=== PATIENT | female | born 1990 | race Caucasian/White ===

== ENCOUNTER 2021-11-05 23:02 | Inpatient (IN) | payer OTHER ==
[2021-11-05] MEDS ORDERED: Lidocaine 1% (PF) 30 ML VIAL ONE (23:17)
[2021-11-05] MEDS ORDERED: NS w/ Oxytocin 30 units 500 ML ONE (23:17)
[2021-11-05] MEDS ORDERED: Oxytocin 10 UNITS/ML VIAL ONE (23:17)
[2021-11-05] MEDS ORDERED: NS w/ Oxytocin 30 units 500 ML IV SCH ×2 (23:45)
[2021-11-05] MEDS ORDERED: Lactated Ringer's 1,000 ML IV SCH (23:45)
[2021-11-05] MEDS ORDERED: Ondansetron PF 4 MG/2 ML Vial IVP PRN (23:51)
[2021-11-05] MEDS ORDERED: Promethazine HCl 25 MG/ML VIAL IM PRN (23:51)
[2021-11-05] MEDS ORDERED: hydrALAZINE 20 MG/ML VIAL SLOW IVP PRN (23:51)
[2021-11-05] MEDS ORDERED: Lidocaine 1% (PF) 30 ML VIAL SC PRN (23:51)
[2021-11-06 00:01] LABS: Hemoglobin 13.3 g/dL (12.0-15.5); Mean Corpuscular Hemoglobin 32.4 pg (27.0-33.0); Mean Corpuscular Volume 92.5 fl (81.6-98.3); Mean Platelet Volume 11.2 fl (7.4-10.4); Platelet Count 221 10x3/uL (150-450); RBC Distribution Width 13.4 % (11.5-14.5); Red Blood Cell (RBC) Count 4.11 10x6/uL (3.90-5.03); White Blood Cell (WBC) Count 23.3 10x3/uL (3.5-10.5)
[2021-11-06 00:33] LABS: Syphilis Antibody Nonreactive (Nonreactive); Syphilis Antibody Index 0.03 S/CO (<1.00 Non-Reactive)
[2021-11-06 00:34] LABS: Hep B Surf Ag Non-Reactive S/CO (NonReactive)
[2021-11-06 00:35] LABS: HBSAg Index 0.16 S/CO (0-0.99)
[2021-11-06 01:26] VITALS: BMI 25.7
[2021-11-06] MEDS ORDERED: Bicitra 30 ML UDCUP PO PRN (02:22)
[2021-11-06] MEDS ORDERED: Famotidine/PF 20 mg/2ml Vial SLOW IVP PRN (02:22)
[2021-11-06] MEDS ORDERED: ceFAZolin 2 GM/Dextrose 50 ML IVPB ONE (02:26)
[2021-11-06] MEDS ORDERED: Azithromycin 500 MG VIAL ONE (02:26)
[2021-11-06] MEDS ORDERED: ceFAZolin 2 GM/Dextrose 50 ML 2 GM in Premix Bag 1 BAG IVPB SCH (02:30)
[2021-11-06] MEDS ORDERED: Azithromycin 500 MG in Sodium Chloride 0.9% 250 ML 250 ML IVPB SCH (02:30)
[2021-11-06] MEDS ORDERED: Morphine PF 10 MG/10 ML VIAL ONE (02:31)
[2021-11-06] MEDS ORDERED: Dexamethasone 4 mg/ml Vial ONE (02:31)
[2021-11-06] MEDS ORDERED: Ondansetron PF 4 MG/2 ML Vial ONE (02:31)
[2021-11-06] MEDS ORDERED: PHENYLEPHRINE-NS 100 MCG/ML 10 ML SYRINGE ONE ×2 (02:31→03:12)
[2021-11-06] MEDS ORDERED: Oxytocin 10 UNITS/ML VIAL ONE (02:31)
[2021-11-06] MEDS ORDERED: diphenhydrAMINE 50 MG/ML VIAL IVP PRN (02:54)
[2021-11-06] MEDS ORDERED: Ondansetron PF 4 MG/2 ML Vial IVP PRN ×2 (02:54→05:58)
[2021-11-06] MEDS ORDERED: Naloxone HCl 0.4 mg/ml Vial IVP PRN ×2 (02:54)
[2021-11-06] MEDS ORDERED: Moisturizing Cream (Eucerin) 113 GM JAR TOP PRN (02:54)
[2021-11-06] MEDS ORDERED: Promethazine HCl 25 MG/ML VIAL IM PRN (02:54)
[2021-11-06] MEDS ORDERED: Promethazine HCl 25 MG SUPP PR PRN (02:54)
[2021-11-06] MEDS ORDERED: Naloxone HCl 0.4 mg/ml Vial IV PRN (02:54)
[2021-11-06] MEDS ORDERED: Fentanyl 100 MCG/2 ML VIAL SLOW IVP PRN (02:55)
[2021-11-06] MEDS ORDERED: Ondansetron HCl/PF 4 MG/2 ML Vial IVP PRN (02:55)
[2021-11-06] MEDS ORDERED: Misoprostol 200 MCG TAB ONE (02:55)
[2021-11-06] MEDS ORDERED: Meperidine HCl/PF 25 MG/ML VIAL SLOW IVP PRN (02:55)
[2021-11-06] MEDS ORDERED: Carboprost 250 MCG/ML AMP ONE (02:56)
[2021-11-06] MEDS ORDERED: Tranexamic Acid 1,000 MG/10 ML VIAL ONE (02:56)
[2021-11-06] MEDS ORDERED: Methylergonovine 0.2 MG/ML VIAL ONE (02:56)
[2021-11-06] MEDS ORDERED: Ketorolac Tromethamine 30 MG/ML VIAL IVP SCH (03:00)
[2021-11-06] MEDS ORDERED: Communication Order-Pharmacy FS SCH (03:00)
[2021-11-06 03:30] LABS: pH (Cord, venous) 7.334 (7.250-7.350)
[2021-11-06] MEDS ORDERED: Lanolin Ointment 7 GM TUBE TOP PRN (05:58)
[2021-11-06] MEDS ORDERED: hydrALAZINE 20 MG/ML VIAL SLOW IVP PRN (05:58)
[2021-11-06] MEDS ORDERED: diphenhydrAMINE 25 MG CAP PO PRN (05:58)
[2021-11-06] MEDS ORDERED: Boostrix 0.5 ML (Tdap) VIAL IM ONE (05:58)
[2021-11-06] MEDS ORDERED: Ibuprofen 800 MG TAB PO SCH (06:00)
[2021-11-06] MEDS: Lactated Ringer's 1,000 ML IV SCH ×2 (08:08→14:24)
[2021-11-06 08:47] LABS: HIV (1/2) Antibody/Antigen Non-Reactive (NonReactive); HIV 1/2 INDEX 0.06 S/CO (<1.00)
[2021-11-06] MEDS: Prenatal Vitamin 1 TAB PO SCH (10:13)
[2021-11-06] MEDS ORDERED: oxyCODONE 5 MG TAB PO PRN ×2 (11:12→11:16)
[2021-11-06] MEDS ORDERED: Acetaminophen 325 MG TAB PO PRN ×2 (11:14→11:17)
[2021-11-06 12:24] LABS: SARS-CoV-2 NAA Rapid Test Not Detected (NotDetected)
[2021-11-06] MEDS: Ketorolac Tromethamine 30 MG/ML VIAL IVP PRN ×2 (14:23→21:43)
[2021-11-06] MEDS ORDERED: HYDROcodone/Acetaminophen 5/325 mg Tablet PO PRN ×2 (15:00)
[2021-11-06] MEDS: oxyCODONE 5 MG TAB PO PRN ×2 (15:59→21:41)
[2021-11-07] MEDS: Lactated Ringer's 1,000 ML IV SCH ×5 (00:22→20:58)
[2021-11-07] MEDS: oxyCODONE 5 MG TAB PO PRN ×5 (01:48→20:00)
[2021-11-07 05:34] LABS: Hemoglobin 11.1 g/dL (12.0-15.5); Mean Corpuscular HGB CONC 33.5 g/dL (32.0-36.0); Mean Corpuscular Hemoglobin 31.5 pg (27.0-33.0); Mean Platelet Volume 11.1 fl (7.4-10.4); Platelet Count 169 10x3/uL (150-450); RBC Distribution Width 14.2 % (11.5-14.5); Red Blood Cell (RBC) Count 3.52 10x6/uL (3.90-5.03); White Blood Cell (WBC) Count 13.6 10x3/uL (3.5-10.5)
[2021-11-07] MEDS: Ibuprofen 800 MG TAB PO SCH ×3 (06:48→22:10)
[2021-11-07] MEDS: Prenatal Vitamin 1 TAB PO SCH (09:06)
[2021-11-07] MEDS: Docusate 100 MG CAP PO SCH (09:06)
[2021-11-07] MEDS: Simethicone Chewable 80 MG TAB PO PRN ×2 (09:06→16:06)
[2021-11-07] MEDS ORDERED: Ibuprofen 800 MG TAB PO SCH (14:00)
[2021-11-08] MEDS: oxyCODONE 5 MG TAB PO PRN ×5 (00:12→20:50)
[2021-11-08] MEDS: Ibuprofen 800 MG TAB PO SCH ×3 (05:08→20:49)
[2021-11-08] MEDS: Lactated Ringer's 1,000 ML IV SCH ×3 (08:28→19:59)
[2021-11-08] MEDS: Docusate 100 MG CAP PO SCH (09:30)
[2021-11-08] MEDS: Simethicone Chewable 80 MG TAB PO PRN (09:30)
[2021-11-08] MEDS: Prenatal Vitamin 1 TAB PO SCH (09:30)
[2021-11-08 21:13] VITALS: BP 123/65; TEMP 98.6
[2021-11-09] MEDS: oxyCODONE 5 MG TAB PO PRN ×3 (03:01→15:06)
[2021-11-09] MEDS: Ibuprofen 800 MG TAB PO SCH ×2 (05:59→14:20)
[2021-11-09] MEDS: Prenatal Vitamin 1 TAB PO SCH (09:06)
[2021-11-09] MEDS: Docusate 100 MG CAP PO SCH (09:06)
[2021-11-09] MEDS: Simethicone Chewable 80 MG TAB PO PRN (09:10)
[2021-11-09] MEDS: Lactated Ringer's 1,000 ML IV SCH (15:58)
== END 2021-11-09 18:35 | disposition home or self-care (01) | DRG 788 ==
LOC: CSHLD/OP 23:02 → CSHLD 23:20 → CSHPP 11-06 06:20
PROVIDERS: ADMIT Obstetrics & Gynecology; ATTEND Obstetrics & Gynecology
PROC: 10D00Z1 Extraction of Products of Conception, Low, Open Approach (ICD-10-PCS; principal; 2021-11-06)
DX: O34.211 Maternal care for low transverse scar from previous cesarean delivery (principal); O76 Abnormality in fetal heart rate and rhythm complicating labor and delivery; O99.892 Other specified diseases and conditions complicating childbirth; N73.6 Female pelvic peritoneal adhesions (postinfective); Z20.822 Contact with and (suspected) exposure to COVID-19; O32.8XX0 Maternal care for other malpresentation of fetus, not applicable or unspecified; Z3A.40 40 weeks gestation of pregnancy; Z37.0 Single live birth; Z87.891 Personal history of nicotine dependence; Z91.040 Latex allergy status; Z79.899 Other long term (current) drug therapy; Z98.890 Other specified postprocedural states
CPT/HCPCS: 36415; 51702; 82805; 85027; 86762; 86780; 86850; 86900; 86901; 87340; 87389; 99285; J1100; J1885; J2001; J2274; J2405; J2590; J7120; U0002

== ENCOUNTER 2021-12-14 14:55 | Emergency (ER) | payer OTHER ==
[2021-12-14 17:28] LABS: #Eosinphils 0.1 10x3/uL (0.0-0.5); #Monocytes 0.4 10x3/uL (0.0-1.1); %Basophils 0.4 % (0.0-2.0); %Eosinophils 2.1 % (0.0-6.0); %Lymphocytes 33.3 % (18.0-47.0); %Monocytes 5.9 % (0.0-10.0); Hemoglobin 13.9 g/dL (12.0-15.5); Mean Corpuscular HGB CONC 34.9 g/dL (32.0-36.0); Mean Corpuscular Hemoglobin 31.7 pg (27.0-33.0); Mean Corpuscular Volume 90.7 fl (81.6-98.3); Mean Platelet Volume 10.3 fl (7.4-10.4); Platelet Count 198 10x3/uL (150-450); RBC Distribution Width 12.5 % (11.5-14.5); Red Blood Cell (RBC) Count 4.39 10x6/uL (3.90-5.03); White Blood Cell (WBC) Count 6.8 10x3/uL (3.5-10.5)
[2021-12-14 17:40] LABS: ALT (SGPT) 16 U/L (8-55); AST (SGOT) 16 U/L (5-34); Albumin 4.4 g/dL (3.5-5.0); Alkaline Phosphatase 85 U/L (40-110); Anion Gap 13 mmol/L (10-20); BUN (Urea Nitrogen) 14 mg/dL (7.0-18.7); Bilirubin, Total 1.2 mg/dL (0.2-1.2); Calc. Creatinine Clearance 0 mL/min (70-130); Calcium 9.8 mg/dL (7.8-10.44); Carbon Dioxide 27 mmol/L (22-29); Chloride 104 mmol/L (98-107); Estimated GFR 103; Globulin 2.8 g/dL (2.4-3.5); Glucose 89 mg/dL (70-105); Potassium 3.8 mmol/L (3.5-5.1); Protein, Total 7.2 g/dL (6.0-8.3); Sodium 140 mmol/L (136-145)
[2021-12-14 18:20] LABS: Bilirubin Neg (Negative); Blood, Urine 150 (Negative); Clarity Slightly Cloudy (Clear); Glucose, Urine (Dipstick) Normal (Negative); Ketone, Urine Negative (Negative); Leukocyte 100 (Negative); Nitrite Negative (Negative); Protein, Urine (Dipstick) Negative (Neg-Trace); Specific Gravity, Urine 1.005 (1.002-1.036); Urobilinogen Normal mg/dL (Less than 2)
[2021-12-14] MEDS ORDERED: Ketorolac Tromethamine 30 MG/ML VIAL ONE (18:25)
[2021-12-14 18:36] LABS: Bacteria/HPF 3+ HPF (None Seen); Mucous/LPF 1+ LPF (<2+)
== END 2021-12-14 18:37 | disposition home or self-care (01) ==
LOC: CSHERS 14:55
DX: O72.1 Other immediate postpartum hemorrhage (principal); Z87.891 Personal history of nicotine dependence
CPT/HCPCS: 76856; 80053; 81003; 81015; 84702; 85025; 86850; 86900; 86901; J1885

== ENCOUNTER 2021-12-19 21:34 | Emergency (ER) | payer OTHER ==
[2021-12-19] MEDS ORDERED: Ondansetron PF 4 MG/2 ML Vial ONE (23:24)
[2021-12-19 23:26] LABS: #Eosinphils 0.1 10x3/uL (0.0-0.5); #Monocytes 0.4 10x3/uL (0.0-1.1); #Neutrophils 2.4 10x3/uL (1.5-8.4); %Basophils 0.7 % (0.0-2.0); %Eosinophils 2.5 % (0.0-6.0); %Monocytes 7.3 % (0.0-10.0); %Neutrophils 43.3 % (40.0-75.0); Hemoglobin 12.8 g/dL (12.0-15.5); Mean Corpuscular HGB CONC 34.5 g/dL (32.0-36.0); Mean Corpuscular Hemoglobin 31.1 pg (27.0-33.0); Mean Corpuscular Volume 90.3 fl (81.6-98.3); Mean Platelet Volume 10.5 fl (7.4-10.4); Platelet Count 173 10x3/uL (150-450); RBC Distribution Width 12.4 % (11.5-14.5); Red Blood Cell (RBC) Count 4.11 10x6/uL (3.90-5.03); White Blood Cell (WBC) Count 5.6 10x3/uL (3.5-10.5)
[2021-12-19] MEDS ORDERED: Morphine 4 MG/ML VIAL ONE (23:33)
[2021-12-19 23:36] LABS: BHCG - Serum Negative (NEGATIVE); Pregs Control Background? CLEAR/WHITE (CLR/WHITE); Pregs Control Bar Appear? YES (CONTROL BAR)
[2021-12-19 23:44] LABS: ALT (SGPT) 17 U/L (8-55); AST (SGOT) 15 U/L (5-34); Alkaline Phosphatase 71 U/L (40-110); Anion Gap 9 mmol/L (10-20); BUN (Urea Nitrogen) 17 mg/dL (7.0-18.7); Bilirubin, Total 1.3 mg/dL (0.2-1.2); Calc. Creatinine Clearance 0 mL/min (70-130); Calcium 9.5 mg/dL (7.8-10.44); Carbon Dioxide 28 mmol/L (22-29); Chloride 106 mmol/L (98-107); Estimated GFR 113; Globulin 2.6 g/dL (2.4-3.5); Glucose 113 mg/dL (70-105); Potassium 3.7 mmol/L (3.5-5.1); Protein, Total 6.6 g/dL (6.0-8.3); Sodium 139 mmol/L (136-145)
[2021-12-20 00:51] LABS: Bilirubin Neg (Negative); Blood, Urine 150 (Negative); Clarity Slightly Cloudy (Clear); Glucose, Urine (Dipstick) Normal (Negative); Ketone, Urine Negative (Negative); Leukocyte 25 (Negative); Nitrite Negative (Negative); Protein, Urine (Dipstick) Negative (Neg-Trace); Urobilinogen Normal mg/dL (Less than 2)
[2021-12-20 01:13] LABS: Bacteria/HPF 1+ HPF (None Seen); Squamous Epithelial 0-3 HPF (0-3); WBC/HPF 0-3 HPF (0-3)
[2021-12-20] MEDS ORDERED: Ketorolac Tromethamine 30 MG/ML VIAL ONE (02:57)
[2021-12-20] MEDS ORDERED: Morphine 4 MG/ML VIAL ONE (04:25)
[2021-12-20] MEDS ORDERED: Iopamidol 300 61% 100 ML VIAL FS ONE (12:36)
== END 2021-12-20 05:58 | disposition home or self-care (01) ==
LOC: CSHERS 21:34
DX: O72.2 Delayed and secondary postpartum hemorrhage (principal); Z87.891 Personal history of nicotine dependence
CPT/HCPCS: 74177; 76856; 80053; 81003; 81015; 84703; 85025; 96374; 96375; 96376; J1885; J2270; J2405; Q9967

== ENCOUNTER 2022-06-10 16:30 | Emergency (ER) | payer OTHER ==
[2022-06-10] MEDS ORDERED: Ondansetron PF 4 MG/2 ML Vial ONE (17:18)
[2022-06-10 17:36] LABS: #Monocytes 0.4 10x3/uL (0.0-1.1); #Neutrophils 10.7 10x3/uL (1.5-8.4); %Basophils 0.2 % (0.0-2.0); %Eosinophils 0.3 % (0.0-6.0); %Lymphocytes 4.1 % (18.0-47.0); %Monocytes 3.1 % (0.0-10.0); Hemoglobin 14.6 g/dL (12.0-15.5); Mean Corpuscular HGB CONC 36.2 g/dL (32.0-36.0); Mean Corpuscular Hemoglobin 31.9 pg (27.0-33.0); Mean Corpuscular Volume 88.2 fl (81.6-98.3); Mean Platelet Volume 10.6 fl (7.4-10.4); Platelet Count 171 10x3/uL (150-450); RBC Distribution Width 11.9 % (11.5-14.5); Red Blood Cell (RBC) Count 4.57 10x6/uL (3.90-5.03); White Blood Cell (WBC) Count 11.7 10x3/uL (3.5-10.5)
[2022-06-10 17:47] LABS: ALT (SGPT) 17 U/L (8-55); AST (SGOT) 14 U/L (5-34); Albumin 4.2 g/dL (3.5-5.0); Alkaline Phosphatase 58 U/L (40-110); Anion Gap 14 mmol/L (10-20); BUN (Urea Nitrogen) 10 mg/dL (7.0-18.7); Bilirubin, Total 2.8 mg/dL (0.2-1.2); Calc. Creatinine Clearance 0 mL/min (70-130); Carbon Dioxide 19 mmol/L (22-29); Chloride 104 mmol/L (98-107); Estimated GFR 119; Globulin 2.9 g/dL (2.4-3.5); Glucose 102 mg/dL (70-105); Potassium 3.5 mmol/L (3.5-5.1); Protein, Total 7.1 g/dL (6.0-8.3); Sodium 133 mmol/L (136-145)
[2022-06-10] MEDS ORDERED: Famotidine/PF 20 mg/2ml Vial ONE (17:50)
[2022-06-10] MEDS ORDERED: diphenhydrAMINE 50 MG/ML VIAL ONE (17:50)
[2022-06-10 18:15] LABS: Bilirubin Neg (Negative); Blood, Urine 50 (Negative); Clarity Clear (Clear); Glucose, Urine (Dipstick) Normal (Negative); Ketone, Urine Negative (Negative); Leukocyte Negative (Negative); Nitrite Negative (Negative); Protein, Urine (Dipstick) Negative (Neg-Trace); Urobilinogen Normal mg/dL (Less than 2); pH, Urine 6.5 (5.0-9.0)
[2022-06-10 18:39] LABS: Bacteria/HPF Rare-Few HPF (None Seen); RBC/HPF 0-3 HPF (0-3); WBC/HPF 0-3 HPF (0-3)
== END 2022-06-10 21:00 | disposition home or self-care (01) ==
LOC: CSHERS 16:30
DX: O21.9 Vomiting of pregnancy, unspecified (principal); Z3A.09 9 weeks gestation of pregnancy; Z87.891 Personal history of nicotine dependence
CPT/HCPCS: 76856; 80053; 81003; 81015; 84702; 85025; 86900; 86901; 96374; 96375; J1200; J2405; S0028

== ENCOUNTER 2022-11-18 20:31 | Day surgery (SDC) | payer OTHER ==
[2022-11-18 21:03] VITALS: BMI 25.7
[2022-11-18] MEDS ORDERED: hydrALAZINE 20 MG/ML VIAL SLOW IVP PRN (21:38)
== END 2022-11-18 21:34 | disposition home or self-care (01) ==
LOC: CSHLD/OP 20:31
PROVIDERS: ATTEND Obstetrics & Gynecology
DX: O99.613 Diseases of the digestive system complicating pregnancy, third trimester (principal); K52.9 Noninfective gastroenteritis and colitis, unspecified; Z3A.32 32 weeks gestation of pregnancy; Z91.040 Latex allergy status

== ENCOUNTER 2023-01-11 22:09 | Emergency (ER) | payer OTHER ==
[2023-01-12 01:18] LABS: #Basophils 0.1 10x3/uL (0.0-0.2); #Eosinphils 0.3 10x3/uL (0.0-0.5); #Monocytes 0.6 10x3/uL (0.0-1.1); #Neutrophils 4.5 10x3/uL (1.5-8.4); %Basophils 0.7 % (0.0-2.0); %Eosinophils 3.7 % (0.0-6.0); %Lymphocytes 33.4 % (18.0-47.0); %Monocytes 6.9 % (0.0-10.0); %Neutrophils 54.8 % (40.0-75.0); Hematocrit 32.9 % (34.9-44.5); Hemoglobin 10.8 g/dL (12.0-15.5); Mean Corpuscular HGB CONC 32.8 g/dL (32.0-36.0); Mean Corpuscular Hemoglobin 30.4 pg (27.0-33.0); Mean Corpuscular Volume 92.7 fl (81.6-98.3); Mean Platelet Volume 10.3 fl (7.4-10.4); Platelet Count 288 10x3/uL (150-450); RBC Distribution Width 12.6 % (11.5-14.5); Red Blood Cell (RBC) Count 3.55 10x6/uL (3.90-5.03); White Blood Cell (WBC) Count 8.1 10x3/uL (3.5-10.5)
[2023-01-12 01:21] LABS: ALT (SGPT) 21 U/L (8-55); AST (SGOT) 15 U/L (5-34); Albumin 3.7 g/dL (3.5-5.0); Alkaline Phosphatase 109 U/L (40-110); Anion Gap 13 mmol/L (10-20); BUN (Urea Nitrogen) 17 mg/dL (7.0-18.7); Bilirubin, Total 0.5 mg/dL (0.2-1.2); Calc. Creatinine Clearance 0 mL/min (70-130); Calcium 9.2 mg/dL (7.8-10.44); Carbon Dioxide 25 mmol/L (22-29); Chloride 103 mmol/L (98-107); Estimated GFR 117; Globulin 3.3 g/dL (2.4-3.5); Glucose 88 mg/dL (70-105); Lipase 21 U/L (8-78); Potassium 3.6 mmol/L (3.5-5.1); Sodium 137 mmol/L (136-145)
[2023-01-12 02:31] LABS: Bilirubin Neg (Negative); Blood, Urine Negative (Negative); Clarity Clear (Clear); Glucose, Urine (Dipstick) Normal (Negative); Ketone, Urine Negative (Negative); Leukocyte Negative (Negative); Nitrite Negative (Negative); Protein, Urine (Dipstick) Negative (Neg-Trace); Urobilinogen Normal mg/dL (Less than 2)
[2023-01-12 02:46] LABS: CAUTI Indications for Culture Pelvic or flank pain; RBC/HPF None Seen HPF (0-3); WBC/HPF 0-3 HPF (0-3)
[2023-01-12 02:47] LABS: Bacteria/HPF Rare-Few HPF (None Seen); Squamous Epithelial 0-3 HPF (0-3); Urine Culture Reflex No No
[2023-01-12] MEDS ORDERED: Iopamidol 300 61% 100 ML VIAL FS ONE (09:13)
== END 2023-01-12 03:46 | disposition home or self-care (01) ==
LOC: CSHERS 22:09
DX: O99.893 Other specified diseases and conditions complicating puerperium (principal); G89.18 Other acute postprocedural pain; R10.31 Right lower quadrant pain; K59.00 Constipation, unspecified; L25.9 Unspecified contact dermatitis, unspecified cause; Z87.891 Personal history of nicotine dependence
CPT/HCPCS: 74177; 80053; 81001; 83690; 85025; 96374; 96375; Q9967

== ENCOUNTER 2023-03-14 14:17 | Emergency (ER) | payer OTHER ==
[2023-03-14 16:50] LABS: SARS-CoV-2 NAA Rapid Test Not Detected (NotDetected)
== END 2023-03-14 19:36 | disposition home or self-care (01) ==
LOC: CSHERS 14:17
DX: B34.9 Viral infection, unspecified (principal); Z20.822 Contact with and (suspected) exposure to COVID-19; Z87.891 Personal history of nicotine dependence
CPT/HCPCS: 99283

== ENCOUNTER 2023-07-16 20:01 | Emergency (ER) | payer OTHER, SELFPAY ==
[2023-07-16 21:25] LABS: Bilirubin Neg (Negative); Blood, Urine 250 (Negative); Clarity Clear (Clear); Glucose, Urine (Dipstick) Normal (Negative); Ketone, Urine Negative (Negative); Leukocyte Negative (Negative); Nitrite Negative (Negative); Protein, Urine (Dipstick) Negative (Neg-Trace); Urobilinogen Normal mg/dL (Less than 2)
[2023-07-16 21:26] LABS: #Eosinphils 0.1 10x3/uL (0.0-0.5); #Monocytes 0.4 10x3/uL (0.0-1.1); #Neutrophils 3.8 10x3/uL (1.5-8.4); %Basophils 0.6 % (0.0-2.0); %Lymphocytes 38.5 % (18.0-47.0); %Monocytes 5.5 % (0.0-10.0); %Neutrophils 53.3 % (40.0-75.0); Hematocrit 39.6 % (34.9-44.5); Hemoglobin 13.8 g/dL (12.0-15.5); Mean Corpuscular HGB CONC 34.8 g/dL (32.0-36.0); Mean Corpuscular Hemoglobin 31.6 pg (27.0-33.0); Mean Corpuscular Volume 90.6 fl (81.6-98.3); Mean Platelet Volume 10.7 fl (7.4-10.4); Platelet Count 241 10x3/uL (150-450); RBC Distribution Width 11.9 % (11.5-14.5); Red Blood Cell (RBC) Count 4.37 10x6/uL (3.90-5.03); White Blood Cell (WBC) Count 7.1 10x3/uL (3.5-10.5)
[2023-07-16 21:32] LABS: Bacteria/HPF Rare-Few HPF (None Seen); CAUTI Indications for Culture Pregnancy; RBC/HPF 0-3 HPF (0-3); Squamous Epithelial 0-3 HPF (0-3); Urine Culture Reflex Yes Yes; WBC/HPF None Seen HPF (0-3)
[2023-07-16 21:37] LABS: ALT (SGPT) 16 U/L (8-55); AST (SGOT) 14 U/L (5-34); Albumin 4.3 g/dL (3.5-5.0); Alkaline Phosphatase 80 U/L (40-110); Anion Gap 12 mmol/L (10-20); BUN (Urea Nitrogen) 9 mg/dL (7.0-18.7); Calc. Creatinine Clearance 0 mL/min (70-130); Calcium 9.4 mg/dL (7.8-10.44); Carbon Dioxide 25 mmol/L (22-29); Chloride 108 mmol/L (98-107); Estimated GFR 102; Globulin 2.6 g/dL (2.4-3.5); Glucose 101 mg/dL (70-105); Potassium 3.4 mmol/L (3.5-5.1); Protein, Total 6.9 g/dL (6.0-8.3); Sodium 142 mmol/L (136-145)
[2023-07-16] MEDS ORDERED: Ondansetron PF 4 MG/2 ML Vial ONE (21:42)
[2023-07-16] MEDS ORDERED: Acetaminophen 500 MG TAB ONE (21:43)
[2023-07-16] MEDS ORDERED: Ketorolac Tromethamine 30 MG (1 mL) VIAL ONE (22:57)
[2023-07-16] MEDS ORDERED: HYDROcodone/Acetaminophen 5/325 mg Tablet ONE (22:57)
== END 2023-07-16 23:07 | disposition home or self-care (01) ==
LOC: CSHERS 20:01
DX: O03.9 Complete or unspecified spontaneous abortion without complication (principal); Z87.891 Personal history of nicotine dependence
CPT/HCPCS: 36415; 76856; 80053; 81001; 84702; 85025; 86850; 86900; 86901; 87086; 96374; 96375; J1885; J2405

== ENCOUNTER 2023-07-25 23:09 | Emergency (ER) | payer SELFPAY ==
[2023-07-25] MEDS ORDERED: Ketorolac Tromethamine 30 MG (1 mL) VIAL ONE (23:58)
[2023-07-25] MEDS ORDERED: Ondansetron PF 4 MG/2 ML Vial ONE (23:58)
[2023-07-26 00:36] LABS: #Basophils 0.1 10x3/uL (0.0-0.2); #Eosinphils 0.1 10x3/uL (0.0-0.5); #Monocytes 0.5 10x3/uL (0.0-1.1); #Neutrophils 4.2 10x3/uL (1.5-8.4); %Basophils 0.6 % (0.0-2.0); %Eosinophils 1.6 % (0.0-6.0); %Lymphocytes 38.5 % (18.0-47.0); %Neutrophils 53.2 % (40.0-75.0); Hematocrit 38.2 % (34.9-44.5); Hemoglobin 13.2 g/dL (12.0-15.5); Mean Corpuscular HGB CONC 34.6 g/dL (32.0-36.0); Mean Corpuscular Hemoglobin 31.3 pg (27.0-33.0); Mean Corpuscular Volume 90.5 fl (81.6-98.3); Mean Platelet Volume 10.6 fl (7.4-10.4); Platelet Count 218 10x3/uL (150-450); RBC Distribution Width 11.8 % (11.5-14.5); Red Blood Cell (RBC) Count 4.22 10x6/uL (3.90-5.03)
[2023-07-26 01:00] LABS: ALT (SGPT) 15 U/L (8-55); AST (SGOT) 14 U/L (5-34); Albumin 4.2 g/dL (3.5-5.0); Alkaline Phosphatase 93 U/L (40-110); Anion Gap 14 mmol/L (10-20); BUN (Urea Nitrogen) 15 mg/dL (7.0-18.7); Bilirubin, Total 0.8 mg/dL (0.2-1.2); Calc. Creatinine Clearance 0 mL/min (70-130); Calcium 9.4 mg/dL (7.8-10.44); Carbon Dioxide 20 mmol/L (22-29); Chloride 108 mmol/L (98-107); Estimated GFR 97; Globulin 2.7 g/dL (2.4-3.5); Glucose 97 mg/dL (70-105); Potassium 3.4 mmol/L (3.5-5.1); Protein, Total 6.9 g/dL (6.0-8.3); Sodium 139 mmol/L (136-145)
== END 2023-07-26 01:09 | disposition home or self-care (01) ==
LOC: CSHERS 23:09
DX: O03.9 Complete or unspecified spontaneous abortion without complication (principal); Z87.891 Personal history of nicotine dependence
CPT/HCPCS: 76856; 80053; 84702; 85025; 96374; 96375; J1885; J2405